=== PATIENT | male | born 1975 | race African-American/Black ===

== ENCOUNTER 2019-02-20 22:02 | Emergency (ER) | payer SELFPAY ==
[~2019-02-20] VITALS: Ht 188 cm; Wt 111.1 kg
--- NOTE | 2019-02-20 22:48 | Diagnostic Imaging Report ---
X-RAY RIGHT SHOULDER 2 VIEWS HISTORY: Pain COMPARISON: None available. FINDINGS: Bones: Enthesopathic changes at the greater tuberosity. Osseous alignment is within normal limits. Joints: Mild degenerative changes at the acromioclavicular joint. Soft tissues: The soft tissues appear unremarkable. IMPRESSION: No acute radiographic abnormality. Rotator cuff enthesopathy. Mild degenerative changes at the acromioclavicular joint. Signed by: Artemio Mejía DO on 02/20/2019 10:45 PM
[2019-02-20 23:02] VITALS: BP 119/69
== END 2019-02-20 23:09 | disposition home or self-care (01) ==
LOC: ER 22:02
DX: S43.421A Sprain of right rotator cuff capsule, initial encounter (principal); M19.011 Primary osteoarthritis, right shoulder; M75.91 Shoulder lesion, unspecified, right shoulder; X50.9XXA Other and unspecified overexertion or strenuous movements or postures, initial encounter; Y92.009 Unspecified place in unspecified non-institutional (private) residence as the place of occurrence of the external cause
CPT/HCPCS: 99282

== ENCOUNTER → 2020-10-06 | Outpatient (CLI) | payer OTHER | LOC: MRI 08:42 | PROVIDERS: ATTEND Specialist | DX: M24.811 Other specific joint derangements of right shoulder, not elsewhere classified (principal) ==

== ENCOUNTER → 2020-11-16 | Day surgery (SDC) | payer OTHER ==
[~2020-11-16] MED LIST: CLINDAMYCIN 600MG / 50ML 50 ML IV ONE; DEXAMETHASONE SOD PHOS INJ 4 MG/ML VIAL ONE; EPINEPHRINE 1 MG/ML 30ML VIAL ONE; FENTANYL CITRATE/PF 100MCG/2 ML INJ ONE; GLYCOPYRROLATE INJ 0.2 MG/ML VIAL ONE; LIDOCAINE 2%/ EPINEPHRINE 20ML MDV ONE; LIDOCAINE HCL 2% LOCAL INJ 5 ML SDV VIAL INJ ONE; MEPERIDINE HCL INJ 25 MG/ML VIAL ONE; MIDAZOLAM HCL 2 MG/2 ML VIAL ONE; NEOSTIGMINE 1 MG/ML 10ML VIAL ONE; ONDANSETRON HCL INJ 2MG/ML 2ML 2 MG/ML VIAL ONE; POVIDONE IODINE 0.05% 0.05 % ML PO ONE; PROPOFOL IV EMULSION 10 MG/ML 20 ML VIAL ONE; ROCURONIUM BROMIDE 10 MG/ML 5ML VIAL IV ONE; ROPIVACAINE 0.5% 5 MG/ML 30 ML SDV ONE; SEVOFLURANE INHAL SOLN 250 ML PEN BTL ONE; VITAMIN D3 COM1 EACH PO
[2020-11-16 10:54] VITALS: BP 134/85
== END | disposition home or self-care (01) ==
LOC: OR 06:59
PROVIDERS: ATTEND Specialist
DX: S46.011A Strain of muscle(s) and tendon(s) of the rotator cuff of right shoulder, initial encounter (principal); I10 Essential (primary) hypertension; F17.210 Nicotine dependence, cigarettes, uncomplicated; Z88.0 Allergy status to penicillin; Z88.8 Allergy status to other drugs, medicaments and biological substances; Z01.810 Encounter for preprocedural cardiovascular examination; Z01.812 Encounter for preprocedural laboratory examination; Z20.822 Contact with and (suspected) exposure to COVID-19
CPT/HCPCS: 29826; 29827; 93005; C1713; J1100; J2001 ×2; J2175; J2250; J2405; J2704; J2710; J2795; J3010; U0002

== ENCOUNTER 2021-01-10 10:52 | Outpatient (RCR) | payer OTHER ==
[~2021-01-10 10:52] MED LIST changes: -CLINDAMYCIN 600MG / 50ML 50 ML IV ONE; -DEXAMETHASONE SOD PHOS INJ 4 MG/ML VIAL ONE; -EPINEPHRINE 1 MG/ML 30ML VIAL ONE; -FENTANYL CITRATE/PF 100MCG/2 ML INJ ONE; -GLYCOPYRROLATE INJ 0.2 MG/ML VIAL ONE; -LIDOCAINE 2%/ EPINEPHRINE 20ML MDV ONE; -LIDOCAINE HCL 2% LOCAL INJ 5 ML SDV VIAL INJ ONE; -MEPERIDINE HCL INJ 25 MG/ML VIAL ONE; -MIDAZOLAM HCL 2 MG/2 ML VIAL ONE; -NEOSTIGMINE 1 MG/ML 10ML VIAL ONE; -ONDANSETRON HCL INJ 2MG/ML 2ML 2 MG/ML VIAL ONE; -POVIDONE IODINE 0.05% 0.05 % ML PO ONE; -PROPOFOL IV EMULSION 10 MG/ML 20 ML VIAL ONE; -ROCURONIUM BROMIDE 10 MG/ML 5ML VIAL IV ONE; -ROPIVACAINE 0.5% 5 MG/ML 30 ML SDV ONE; -SEVOFLURANE INHAL SOLN 250 ML PEN BTL ONE
== END 2021-01-29 ==
LOC: PT 10:52
PROVIDERS: ATTEND Physician Assistant
DX: Z47.89 Encounter for other orthopedic aftercare (principal); S46.011D Strain of muscle(s) and tendon(s) of the rotator cuff of right shoulder, subsequent encounter

== ENCOUNTER 2022-01-25 18:44 | Inpatient (IN) | payer SELFPAY ==
[~2022-01-25] VITALS: Ht 188 cm; Wt 81.6 kg
[2022-01-25] MEDS ORDERED: METOPROLOL TARTRATE INJ 1 MG/ML VIAL IV ONE (19:15)
[2022-01-25] MEDS ORDERED: ACETAMINOPHEN 325 MG TAB PO ONE (19:15)
[2022-01-25 20:05] LABS: BASOPHILS # (AUTO) 0.1 (0.0-0.1); BASOPHILS % 0.6 % (0.0-1.0); EOSINOPHILS # (AUTO) 0.1 (0.0-0.4); EOSINOPHILS % 1.5 % (0.0-6.0); HEMATOCRIT 40.9 % (38.2-49.6); HEMOGLOBIN 14.4 g/dL (14.0-18.0); LYMPHOCYTES # (AUTO) 1.8 (1.0-3.2); LYMPHOCYTES % 22.6 % (18.0-39.1); MEAN CORPUSCULAR HGB CONC 35.2 g/dL (31-35); MEAN CORPUSCULAR VOLUME 79.4 fL (81-99); MONOCYTES % 12.5 % (4.4-11.3); NEUTROPHILS # (AUTO) 4.8 (2.1-6.9); NEUTROPHILS % 62.3 % (38.7-80.0); PLATELET COUNT 159 x10e3/uL (140-360); RED BLOOD COUNT 5.15 x10e6/uL (4.3-5.7); RED CELL DISTRIBUTION WIDTH 19.3 % (11.7-14.4)
[2022-01-25 20:12] LABS: INR 1.05; PROTHROMBIN TIME 14.7 seconds (11.9-14.5)
[2022-01-25 20:13] LABS: PARTIAL THROMBOPLASTIN TIME 35.8 seconds (23.8-35.5)
[2022-01-25 20:22] LABS: ALBUMIN 3.2 g/dL (3.5-5.0); ALBUMIN/GLOBULIN RATIO 0.8 (0.8-2.0); ANION GAP 17.6 mmol/L (8-16); CALCIUM 9.2 mg/dL (8.4-10.2); CREATININE, SERUM 0.75 mg/dL (0.72-1.25); POTASSIUM 4.6 mmol/L (3.5-5.1)
[2022-01-25 20:28] LABS: B-TYPE NATRIURETIC PEPTIDE2 15.4 pg/mL (0-100)
[2022-01-25] MEDS ORDERED: SODIUM CHLORIDE 0.9% 1000ML 1,000 ML IV ONE ×2 (20:30)
[2022-01-25] MEDS ORDERED: IOPAMIDOL 370 MG/ML 100 ML INFUS..BTL INJ ONE (21:05)
[2022-01-25] MEDS ORDERED: ACETAMINOPHEN 325 MG TAB PO PRN (23:30)
[2022-01-25 23:44] LABS: CREATINE KINASE 307 IU/L (30-200)
[2022-01-26] MEDS ORDERED: PNEUMOCOCCAL VACCINE POLYVALENT 23 MCG/0.5 ML VIAL IM SCH (01:10)
[2022-01-26] MEDS: SODIUM CHLORIDE 0.9% 1000ML 1,000 ML IV SCH ×4 (01:34→21:59)
[2022-01-26 05:01] LABS: BASOPHILS % 0.4 % (0.0-1.0); EOSINOPHILS # (AUTO) 0.1 (0.0-0.4); EOSINOPHILS % 0.8 % (0.0-6.0); HEMATOCRIT 36.4 % (38.2-49.6); HEMOGLOBIN 12.8 g/dL (14.0-18.0); LYMPHOCYTES # (AUTO) 1.5 (1.0-3.2); LYMPHOCYTES % 19.5 % (18.0-39.1); MEAN CORPUSCULAR HEMOGLOBIN 27.9 pg (28-32); MEAN CORPUSCULAR HGB CONC 35.2 g/dL (31-35); MEAN CORPUSCULAR VOLUME 79.3 fL (81-99); MONOCYTES % 12.3 % (4.4-11.3); NEUTROPHILS # (AUTO) 5.3 (2.1-6.9); NEUTROPHILS % 66.6 % (38.7-80.0); PLATELET COUNT 137 x10e3/uL (140-360); RED BLOOD COUNT 4.59 x10e6/uL (4.3-5.7); RED CELL DISTRIBUTION WIDTH 19.4 % (11.7-14.4)
[2022-01-26 05:21] LABS: ALBUMIN 2.8 g/dL (3.5-5.0); ALBUMIN/GLOBULIN RATIO 0.7 (0.8-2.0); ANION GAP 16.8 mmol/L (8-16); CALCIUM 8.5 mg/dL (8.4-10.2); CREATININE, SERUM 0.73 mg/dL (0.72-1.25); POTASSIUM 4.8 mmol/L (3.5-5.1)
[2022-01-26 05:58] LABS: CREATINE KINASE MB 3.7 ng/mL (0-5.0)
[2022-01-26 07:53] VITALS: BP 134/84
[2022-01-26 09:34] VITALS: BP 134/84
[2022-01-26 11:16] VITALS: BP 133/85
[2022-01-26 14:58] LABS: CREATINE KINASE MB 4.8 ng/mL (0-5.0)
[2022-01-26 15:52] VITALS: BP 131/86
[2022-01-26 20:00] VITALS: BP 113/74
[2022-01-26] MEDS ORDERED: METOPROLOL TARTRATE INJ 1 MG/ML VIAL IV PRN (21:45)
[2022-01-26] MEDS: METOPROLOL TARTRATE 25 MG TAB PO PRN (22:04)
[2022-01-27] VITALS (21 sets, daily range): BP systolic 41–135; BP diastolic 16–110
[2022-01-27 07:17] LABS: BASOPHILS % 0.4 % (0.0-1.0); EOSINOPHILS % 0.2 % (0.0-6.0); HEMATOCRIT 40.2 % (38.2-49.6); LYMPHOCYTES # (AUTO) 1.7 (1.0-3.2); LYMPHOCYTES % 19.5 % (18.0-39.1); MEAN CORPUSCULAR HEMOGLOBIN 27.7 pg (28-32); MEAN CORPUSCULAR HGB CONC 34.8 g/dL (31-35); MEAN CORPUSCULAR VOLUME 79.4 fL (81-99); MONOCYTES # (AUTO) 0.8 (0.2-0.8); MONOCYTES % 9.3 % (4.4-11.3); NEUTROPHILS % 70.1 % (38.7-80.0); PLATELET COUNT 148 x10e3/uL (140-360); RED BLOOD COUNT 5.06 x10e6/uL (4.3-5.7); RED CELL DISTRIBUTION WIDTH 20.7 % (11.7-14.4)
[2022-01-27 08:05] LABS: ALBUMIN 2.9 g/dL (3.5-5.0); ANION GAP 15.5 mmol/L (8-16); CALCIUM 8.7 mg/dL (8.4-10.2); CREATININE, SERUM 0.7 mg/dL (0.72-1.25); POTASSIUM 4.5 mmol/L (3.5-5.1)
[2022-01-27] MEDS: SODIUM CHLORIDE 0.9% 1000ML 1,000 ML IV SCH ×2 (08:32→15:30)
[2022-01-27 08:50] LABS: BILIRUBIN,DIRECT 4.6 mg/dL (0.0-0.5)
[2022-01-27] MEDS: METOPROLOL TARTRATE 25 MG TAB PO PRN (16:46)
[2022-01-27] MEDS ORDERED: LACTATED RINGER'S 1,000 ML INJ SCH (19:30)
[2022-01-27] MEDS ORDERED: LACTATED RINGER'S 1,000 ML ONE (19:46)
[2022-01-27] MEDS ORDERED: SODIUM BICARBONATE 8.4% INJ 50 ML SYR IV ONE (20:00)
[2022-01-27 20:14] LABS: ABG HCO3 8 mmol/L (22-26); ABG PCO2 14 mmHg (35-45); ABG PH 7.37 (7.35-7.45); ABG PO2 58 mmHg (80-105); ABG TCO2 9
[2022-01-27] MEDS: MEROPENEM 1 GM in SODIUM CHLORIDE 0.9% 100 ML IV SCH (20:56)
[2022-01-27 21:17] LABS: CREATINE KINASE MB 7.2 ng/mL (0-5.0)
[2022-01-27] MEDS ORDERED: HEPARIN 25,000 UNIT 1,500 UNIT in DEXTROSE 5% 250ML 250 ML IV SCH (22:30)
[2022-01-27] MEDS ORDERED: DIGOXIN INJ 0.25 MG/ML 2 ML AMP IV ONE (22:30)
[2022-01-27] MEDS ORDERED: HEPARIN 25,000 UNIT DRIP IV ONE (23:00)
[2022-01-27] MEDS ORDERED: SODIUM BICARBONATE 8.4% SYRING 100 ML ONE (23:33)
[2022-01-27] MEDS: NOREPINEPHRINE 8 MG/D5W 250 ML 250 ML IV PRN (23:35)
[2022-01-27] MEDS ORDERED: NOREPINEPHRINE 8 MG/D5W 250 ML 250 ML ONE (23:35)
[2022-01-27] MEDS ORDERED: DEXMEDETOMIDINE 400MCG/NS100ML 100 ML IV ONE (23:45)
[2022-01-27] MEDS ORDERED: FENTANYL 2000MCG/NS 250 250 ML ONE (23:46)
[2022-01-27 23:53] LABS: ABG HCO3 9 mmol/L (22-26); ABG PCO2 28 mmHg (35-45); ABG PO2 180 mmHg (80-105); ABG TCO2 10
[2022-01-27] MEDS ORDERED: SODIUM BICARBONATE 8.4% SYRING 150 ML ONE (23:58)
[2022-01-28] VITALS (55 sets, daily range): BP systolic 21–134; BP diastolic 12–90
[2022-01-28] MEDS ORDERED: DEXTROSE 5% 100ML 100 ML IV ONE (00:22)
[2022-01-28] MEDS ORDERED: VASOPRESSIN INJ 20 UNIT/ML VIAL ONE (00:22)
[2022-01-28] MEDS ORDERED: SODIUM CHLORIDE 0.9% 1000ML 1,000 ML ONE (00:29)
[2022-01-28] MEDS ORDERED: SODIUM BICARBONATE 8.4% 50 ML VIAL ONE (00:36)
[2022-01-28] MEDS ORDERED: DEXTROSE 50% SYRINGE 50 ML IV ONE ×3 (01:06→14:13)
[2022-01-28] MEDS ORDERED: SODIUM BICARBONATE 8.4% 150 ML in DEXTROSE 5% 1,000 ML IV SCH (01:30)
[2022-01-28] MEDS ORDERED: SODIUM BICARBONATE 8.4% 50 ML VIAL IV STA (01:31)
[2022-01-28 01:39] LABS: ABG PCO2 22 mmHg (35-45); ABG PH 7.15 (7.35-7.45); ABG PO2 220 mmHg (80-105)
[2022-01-28 01:40] LABS: ABG HCO3 8 mmol/L (22-26); ABG TCO2 8
[2022-01-28] MEDS ORDERED: DEXTROSE 5% 1,000 ML IV ONE (01:43)
[2022-01-28] MEDS ORDERED: DEXTROSE 50% SYRINGE 50 ML IV STA (03:14)
[2022-01-28] MEDS ORDERED: VASOPRESSIN 100 UNIT in DEXTROSE 5% 100ML 95 ML IV PRN (03:15)
[2022-01-28] MEDS ORDERED: FENTANYL 2000MCG/NS 250 250 ML IV PRN (03:15)
[2022-01-28] MEDS ORDERED: DEXMEDETOMIDINE 400MCG/NS100ML 100 ML IV PRN (03:15)
[2022-01-28] MEDS: NOREPINEPHRINE 8 MG/D5W 250 ML 250 ML IV PRN (03:45)
[2022-01-28] MEDS: MEROPENEM 1 GM in SODIUM CHLORIDE 0.9% 100 ML IV SCH (06:24)
[2022-01-28 07:00] LABS: BASOPHILS # (AUTO) 0.1 (0.0-0.1); BASOPHILS % 0.4 % (0.0-1.0); EOSINOPHILS % 0.1 % (0.0-6.0); HEMATOCRIT 35.9 % (38.2-49.6); HEMOGLOBIN 11.7 g/dL (14.0-18.0); LYMPHOCYTES # (AUTO) 2.4 (1.0-3.2); LYMPHOCYTES % 14.4 % (18.0-39.1); MEAN CORPUSCULAR HEMOGLOBIN 27.7 pg (28-32); MEAN CORPUSCULAR HGB CONC 32.6 g/dL (31-35); MEAN CORPUSCULAR VOLUME 85.1 fL (81-99); MONOCYTES # (AUTO) 1.9 (0.2-0.8); MONOCYTES % 11.8 % (4.4-11.3); NEUTROPHILS # (AUTO) 11.5 (2.1-6.9); NEUTROPHILS % 70.3 % (38.7-80.0); PLATELET COUNT 103 x10e3/uL (140-360); RED BLOOD COUNT 4.22 x10e6/uL (4.3-5.7); RED CELL DISTRIBUTION WIDTH 23.3 % (11.7-14.4)
[2022-01-28] MEDS ORDERED: MIDAZOLAM HCL 2 MG/2 ML VIAL IV STA (07:17)
[2022-01-28] MEDS ORDERED: VECURONIUM BROMIDE FOR INJ 20 MG VIAL IV STA (07:17)
[2022-01-28 07:55] LABS: ABG HCO3 11 mmol/L (22-26); ABG PCO2 32 mmHg (35-45); ABG PH 7.13 (7.35-7.45); ABG PO2 228 mmHg (80-105); ABG TCO2 11
[2022-01-28 08:36] LABS: ALBUMIN 2.4 g/dL (3.5-5.0); ALBUMIN/GLOBULIN RATIO 0.7 (0.8-2.0); ANION GAP 38.5 mmol/L (8-16); CALCIUM 7.3 mg/dL (8.4-10.2); CREATININE, SERUM 2.16 mg/dL (0.72-1.25)
[2022-01-28] MEDS ORDERED: NOREPINEPHRINE 8 MG/D5W 250 ML 250 ML ONE (08:36)
[2022-01-28 08:51] LABS: POTASSIUM 6.5 mmol/L (3.5-5.1)
[2022-01-28] MEDS ORDERED: DIGOXIN 0.125 MG TAB PO SCH (09:00)
[2022-01-28] MEDS ORDERED: INSULIN REGULAR, HUMAN 100 UNIT/1 ML IV ONE (09:00)
[2022-01-28 10:52] LABS: HIV 1&2 AB SCREEN NON-REACTIVE (NONREACTIVE)
[2022-01-28] MEDS ORDERED: TRIMETHOPRIM/SULFAMETHOXAZOLE 160 MG in DEXTROSE 5% 250ML 250 ML IV SCH (11:00)
[2022-01-28 13:38] LABS: BASOPHILS # (AUTO) 0.1 (0.0-0.1); BASOPHILS % 0.3 % (0.0-1.0); EOSINOPHILS % 0.1 % (0.0-6.0); HEMATOCRIT 23.9 % (38.2-49.6); HEMOGLOBIN 7.9 g/dL (14.0-18.0); LYMPHOCYTES % 25.2 % (18.0-39.1); MEAN CORPUSCULAR HEMOGLOBIN 27.8 pg (28-32); MEAN CORPUSCULAR HGB CONC 33.1 g/dL (31-35); MEAN CORPUSCULAR VOLUME 84.2 fL (81-99); MONOCYTES # (AUTO) 1.8 (0.2-0.8); MONOCYTES % 11.1 % (4.4-11.3); NEUTROPHILS # (AUTO) 9.2 (2.1-6.9); NEUTROPHILS % 58.2 % (38.7-80.0); PLATELET COUNT 70 x10e3/uL (140-360); RED BLOOD COUNT 2.84 x10e6/uL (4.3-5.7); RED CELL DISTRIBUTION WIDTH 22.5 % (11.7-14.4)
[2022-01-28] MEDS ORDERED: ALBUTEROL/IPRATROPIUM 3 ML NEB ONE (13:48)
[2022-01-28 13:55] LABS: ALBUMIN 1.6 g/dL (3.5-5.0); ALBUMIN/GLOBULIN RATIO 0.7 (0.8-2.0); ANION GAP 33.8 mmol/L (8-16); CREATININE, SERUM 1.99 mg/dL (0.72-1.25); MAGNESIUM 2.2 MG/DL (1.3-2.1); PHOSPHORUS 8.5 MG/DL (2.3-4.7); POTASSIUM 5.8 mmol/L (3.5-5.1)
[2022-01-28] MEDS ORDERED: EPINEPHRINE HCL SYRINGE ONE ×2 (14:13→14:52)
[2022-01-28] MEDS ORDERED: ATROPINE SULFATE 0.1 MG/ML 10ML SYR ONE ×2 (14:13→14:52)
[2022-01-28] MEDS ORDERED: SODIUM CHLORIDE FLUSH 10 ML SYR ONE (14:13)
[2022-01-28] MEDS ORDERED: SUCCINYLCHOLINE CHLORIDE 20 MG/ML 10ML VIAL ONE (14:13)
[2022-01-28] MEDS ORDERED: CALCIUM CHLORIDE 10% 1.36 MEQ/ML 10ML SYR IV ONE (14:13)
[2022-01-28 14:41] LABS: ABG HCO3 40 mmol/L (22-26); ABG PCO2 47 mmHg (35-45); ABG PH 7.53 (7.35-7.45); ABG PO2 44 mmHg (80-105); ABG TCO2 41
[2022-01-28] MEDS ORDERED: SODIUM BICARBONATE 8.4% INJ 50 ML SYR ONE (14:52)
== END 2022-01-28 17:10 | disposition expired | DRG 871 ==
LOC: ER 19:08 → ERHOLD 23:21 → MED/SURG3 01-26 01:43 → ICU 01-27 20:30
PROVIDERS: ADMIT Internal Medicine; ATTEND Internal Medicine
PROC: 02HV33Z Insertion of Infusion Device into Superior Vena Cava, Percutaneous Approach (ICD-10-PCS; principal; 2022-01-25)
PROC: B548ZZA Ultrasonography of Superior Vena Cava, Guidance (ICD-10-PCS; 2022-01-25)
PROC: 3E04329 Introduction of Other Anti-infective into Central Vein, Percutaneous Approach (ICD-10-PCS; 2022-01-25)
PROC: 5A1935Z Respiratory Ventilation, Less than 24 Consecutive Hours (ICD-10-PCS; 2022-01-27)
PROC: 0BH17EZ Insertion of Endotracheal Airway into Trachea, Via Natural or Artificial Opening (ICD-10-PCS; 2022-01-27)
PROC: 5A12012 Performance of Cardiac Output, Single, Manual (ICD-10-PCS; 2022-01-27)
PROC: 3E043XZ Introduction of Vasopressor into Central Vein, Percutaneous Approach (ICD-10-PCS; 2022-01-27)
PROC: 5A2204Z Restoration of Cardiac Rhythm, Single (ICD-10-PCS; 2022-01-27)
PROC: 02HV33Z Insertion of Infusion Device into Superior Vena Cava, Percutaneous Approach (ICD-10-PCS; 2022-01-28)
PROC: B548ZZA Ultrasonography of Superior Vena Cava, Guidance (ICD-10-PCS; 2022-01-28)
PROC: 04HK33Z Insertion of Infusion Device into Right Femoral Artery, Percutaneous Approach (ICD-10-PCS; 2022-01-28)
PROC: 5A12012 Performance of Cardiac Output, Single, Manual (ICD-10-PCS; 2022-01-28)
DX: A41.9 Sepsis, unspecified organism (principal); I46.9 Cardiac arrest, cause unspecified; N17.0 Acute kidney failure with tubular necrosis; R65.21 Severe sepsis with septic shock; B17.9 Acute viral hepatitis, unspecified; E87.2 Acidosis; D69.6 Thrombocytopenia, unspecified; I50.813 Acute on chronic right heart failure; R16.0 Hepatomegaly, not elsewhere classified; K76.1 Chronic passive congestion of liver; F17.210 Nicotine dependence, cigarettes, uncomplicated; R59.0 Localized enlarged lymph nodes; J98.4 Other disorders of lung; Z88.0 Allergy status to penicillin; Z88.8 Allergy status to other drugs, medicaments and biological substances; Z20.822 Contact with and (suspected) exposure to COVID-19
CPT/HCPCS: 31500; 36415; 36569; 36600; 71045; 71260; 74176; 76700; 80048; 80053; 80076; 82550; 82553; 82805; 82948; 82977; 83605; 83615; 83625; 83690; 83735; 83880; 84100; 84484; 85025; 85610; 85730; 86644; 86645; 86663; 86664; 86665; 87040; 87390; 87536; 92950; 93005; 93306; 93307; 94003; 94799; 96361; 96365; 99284; G0433; G0435; J0171; J0330; J0456; J0696; J1160; J1817; J2185; J2250; J7030; J7050; J7070; J7121; J7799; Q9967